=== PATIENT | female | born 1995 | race Two or more races ===

== ENCOUNTER 2019-07-25 07:03 | Emergency (ER) | payer SELFPAY ==
[~2019-07-25] VITALS: Ht 162.6 cm; Wt 88.5 kg
--- NOTE | 2019-07-25 07:20 | NUR ---
Dallin cantor in [facility] - 07/25/19 at 0730 by ADEN ULTRASOUND AT BEDSIDE
--- NOTE | 2019-07-25 07:21 | NUR ---
PT CAME INTO THE ED C/O R SIDED ABDOMINAL PAIN 05/31. PT AAOX4, VSS, BREATHING EVEN AND UNLABORED ON ROOM AIR W/ NO ACUTE DISTRESS NOTED. PT CONNECTED TO THE MONITOR AND POX. WILL CONTINUE TO MONITOR.
--- NOTE | 2019-07-25 07:22 | NUR ---
PHLEB AT BEDSIDE FOR BLOOD DRAW
--- NOTE | 2019-07-25 07:23 | NUR ---
urine collected and sent to lab. Ultrasound called.
--- NOTE | 2019-07-25 07:25 | NUR ---
ULTRASOUND AT BEDSIDE
[2019-07-25 07:28] LABS: BASOPHILS % (AUTO) 0.5 % (0.0-2.0); EOSINOPHILS % (AUTO) 1.1 % (0.0-6.0); HEMATOCRIT 45 % (33-45); HEMOGLOBIN 14.9 g/dL (11.5-14.8); LYMPHOCYTES # (AUTO) 2.1 /CMM (0.8-4.8); LYMPHOCYTES % (AUTO) 31.8 % (20.0-44.0); MEAN CORPUSCULAR HGB CONC 34 g/dl (31.0-36.0); MEAN CORPUSCULAR VOLUME 89 fL (82-100); MONOCYTES # (AUTO) 0.4 /CMM (0.1-1.30); MONOCYTES % (AUTO) 6.7 % (2.0-12.0); NEUTROPHILS % (AUTO) 59.9 % (43.0-81.0); PLATELET COUNT (AUTO) 281 /CMM (150-450); WHITE BLOOD COUNT (AUTO) 6.6 K/uL (4.3-11.0)
[2019-07-25 07:29] LABS: APPEARANCE,URINE Cloudy (CLEAR); BILIRUBIN,URINE Negative (NEGATIVE); BLOOD, URINE Negative Ery/uL (NEGATIVE); COLOR,URINE Yellow (YELLOW); KETONES,URINE Negative (NEGATIVE); LEUKOCYTE ESTERASE ,URINE Small (NEGATIVE); NITRITE, URINE Negative (NEGATIVE); PH,URINE 5.5 (5.0-8.0); PROTEIN,URINE Trace mg/dl (NEGATIVE); UGLUCOSE Negative (NEGATIVE); UROBILINOGEN,URINE 0.2 EU/dL (0.2)
[2019-07-25 07:37] LABS: CALCIUM, SERUM 8.4 mg/dL (8.5-10.1); CREATININE 0.6 mg/dL (0.6-1.3); POTASSIUM 3.7 mmol/L (3.5-5.1)
[2019-07-25 07:39] LABS: BACTERIA,URINE Few /HPF (None Seen); RBC,URINE 0-3 /HPF (0-2); SQUAMOUS EPITHELIAL CELL,UR Moderate /HPF (None Seen); WBC,URINE 20-50 /HPF (0-3)
[2019-07-25 07:48] LABS: ALBUMIN 3.9 g/dL (3.4-5.0); BILIRUBIN,DIRECT 0.1 mg/dL (0.0-0.2); BILIRUBIN,TOTAL 0.4 mg/dL (0.2-1.0); TOTAL PROTEIN, SERUM 7.6 g/dL (6.4-8.2)
[2019-07-25] MEDS ORDERED: KETOROLAC TROMETHAMINE INJ 30 MG/ML VIAL ONE (07:55)
[2019-07-25] MEDS ORDERED: IBUPROFEN 400 MG TABLET PO ONE (08:00)
[2019-07-25] MEDS ORDERED: ACETAMINOPHEN ES 500 MG TABLET PO ONE (08:00)
[2019-07-25] MEDS ORDERED: KETOROLAC TROMETHAMINE INJ 30 MG/ML VIAL IV ONE (08:00)
[2019-07-25] MEDS ORDERED: IBUPROFEN 400 MG TABLET ONE (08:04)
[2019-07-25] MEDS ORDERED: ACETAMINOPHEN ES 500 MG TABLET ONE ×2 (08:04→08:05)
--- NOTE | 2019-07-25 08:21 | NUR ---
Patient discharged to home in stable condition. Written and verbal after care instructions given. Patient verbalizes understanding of instruction.
[2019-07-25 08:22] VITALS: BP 128/84
== END 2019-07-25 08:22 | disposition home or self-care (01) ==
LOC: ER 07:14
DX: K80.70 Calculus of gallbladder and bile duct without cholecystitis without obstruction (principal); N39.0 Urinary tract infection, site not specified
CPT/HCPCS: 36415; 76705; 80048; 80076; 81001; 83690; 84703; 85025; 99284; J1885; 81000-TC